=== PATIENT | female | born 1960 | race Caucasian/White ===

== ENCOUNTER 2017-11-06 10:03 | Inpatient (IN) | END 2017-11-10 10:50 | disposition home or self-care (01) | DRG 896 ==

== ENCOUNTER 2018-03-11 17:18 | Inpatient (IN) | END 2018-03-12 23:14 | disposition left against medical advice (07) | DRG 894 ==

== ENCOUNTER 2018-04-15 22:15 | Emergency (ER) | END 2018-04-16 02:41 | disposition home or self-care (01) ==

== ENCOUNTER 2018-04-25 17:22 | Emergency (ER) | END 2018-04-25 22:07 | disposition left against medical advice (07) ==